=== PATIENT | male | born 1930 | race Caucasian/White ===

== ENCOUNTER 2016-03-30 10:13 | Emergency (ER) | payer OTHER ==
[~2016-03-30 10:13] MED LIST: ALBUTEROL HFA60 DOSE IN; ASPIRIN ADULT L81 MG PO; CEFTIN500 MG PO; COZAAR100 MG PO; LANTUS SOL100 UNITS/ SC; LIPITOR80 MG PO; MAG-OX 400400 MG PO; METFORMIN HCL850 MG PO; NEXIUM20 M1 PO; TOPROL XL25 MG PO; VICODIN EQUIVAL1 TAB PO; VITAMIN D-31000 UNIT PO; ZESTRIL2.5 MG PO
--- NOTE | 2016-03-30 12:41 | DIAGNOSTIC IMAGING REPORT ---
PROCEDURE: XR CHEST 2 VIEW INDICATION: COUGH TECHNIQUE: PA and lateral view. COMPARISON: None. FINDINGS: Lungs are clear without infiltrates. No change in the 3 mm right lower lobe linear density, possibly a foreign body. Cardiovascular structures are normal. Bony thorax is unremarkable. IMPRESSION: 1. No acute changes.
--- NOTE | 2016-03-30 13:03 | ED ORDER SUMMARY ---
..... Patient: HANY ARNOLD OrderSheet [facility] VisitID: [id number] [address] [place] [address] 85y, M Registration Date/Time: 03/30/2016 ORDER SHEET Weight: 83.9 kg (stated) Allergies: No Known Drug Allergy GENERAL ORDERS: Chest 2V Urgent (11:03/30/2016 Viry CROCKETT) (Ack 11:13 Juany) (11:24 Jose Francisco) MEDICATION ORDERS: Albuterol Neb Tx 2.5 mg (HHN) (11:03/30/2016 Viry CROCKETT) (11:55 Bryce R.N.) Prednisone PO 40 mg (NOW) (11:03/30/2016 Viry CROCKETT) (Ack 11:02 Bryce R.N.) (11:04 Bryce R.N.) IV FLUIDS: ORDER SHEET NOTES: [Electronically signed by Nikky Bullard R.N. (13:30 03/30/2016)] [Electronically signed by Moise Rubio MD (00:49 04/01/2016)] [Electronically locked/signed by Nikky Bullard R.N. (13:30 03/30/2016)]
--- NOTE | 2016-03-30 13:03 | ED NURSING NOTES ---
Clinical Report - Nurses [facility] [address] [place] [address] 03/30/2016 10:14 Patient: HANY ARNOLD TRIAGE Triage time 10:21. Acuity: LEVEL 4. Chief Complaint: COUGH. Alert. No acute distress. SEPSIS SCREEN: Sepsis Screen. Negative (no infection suspected/documented). JAYLIN COMA SCORE: Jaylin Coma Scale: 15- eyes open spontaneously (4); best verbal response- oriented x 4 (5); best motor response- obeys commands (6). --10:25 Nikky Bullard R.N. 10:21 03/30/16. BP: 157/74. HR: 76. RR: 18. O2 saturation: 98%. Temp: 97.8 F. Pain level now 04/26. --10:25 Nikky Bullard R.N. Weight: 83.9 kg stated. Height/Length: 72 inches Per Patient. BMI: 25.1. --10:23 Nikky Bullard R.N. Medications Aspirin Oral (Tablet Chewable 81 mg) 1 tablet, daily. Atorvastatin Calcium Oral (Tablet 80 mg) 1 tablet, daily. Lantus Subcutaneous 26 units, every PM. MetFORMIN HCl Oral (Tablet 850 mg) 1 tablet, 2x a day. Omeprazole Oral 40 mg, daily. Vitamin D (Cholecalciferol) Oral 2000IU, daily. --10:24 Nikky Bullard R.N. Blood Pressure Pill. --10:24 Nikky Bullard R.N. Allergies No Known Drug Allergy. --10:24 Nikky Bullard R.N. History Arrived by private vehicle. Historian: patient. Accompanied by spouse. Primary physician (Dr. Garcia). Onset. (3 weeks ago continues to get worse). Treatment IRONER: None. PAST MEDICAL HX: Immunizations: up-to-date. SOCIAL HX: Current every day light tobacco smoker (cigarette)- less than 1/2 a pack per day. Occasional alcohol use. No drug use. No infectious disease exposure. ABUSE ASSESSMENT: Abuse assessment: The patient was asked "Do you feel safe in your home?" and "Has anyone hurt you or threatened to hurt you?". No report of abuse. SELF HARM ASSESSMENT: A self harm assessment was performed. The patient answered "no" to the question "Do you have thoughts of harming or killing yourself?" and "Have you recently had thoughts about harming or killing others?". NUTRITIONAL RISK ASSESSMENT: The nutritional risk assessment revealed no deficiencies. FUNCTIONAL ASSESSMENT: Functional assessment: no impairments noted. LEARNING NEEDS ASSESSMENT: The learning needs assessment revealed no barriers. --10:25 Nikky Bullard R.N. PROBLEMS: Dehydration. Hypertension. Sinus Tachycardia. UTI - Urinary Tract Infection. Contusion. Fall. Back Pain. GERD. Elevated Cholesterol. Syncope. Diabetes Mellitus. --10:25 Nikky Bullard R.N. ADDITIONAL SURGERIES: Colon resection. Colonoscopy. Lung biopsy. Lung Surgery. Polyp removals. Vasectomy. --10:25 Nikky Bullard R.N. Interventions ID band on patient. Ambulatory. --10:25 Nikky Bullard R.N. PHYSICAL ASSESSMENT Ambulatory to room. GENERAL / NEURO / PSYCH: Alert. Appears in no acute distress. HEENT: Mucous membranes are pink. RESPIRATORY: Respirations not labored. CVS: Capillary refill less than 2 seconds. SKIN: Skin is warm and dry. --10:26 Nikky Bullard R.N. NURSING PROGRESS NOTES Patient gowned. Head of bed elevated. Two patient identifiers checked. Call light placed in reach. Side rails up x 2. Bed placed in lowest position. Brakes of bed on. Patient ready for evaluation- chart flagged. --10:26 Nikky Bullard R.N. 10:26 03/30/2016 Site #1 started via IV in the right antecubital space with an 20g angiocath, with aseptic technique and good blood return; one attempt. Blood drawn: rainbow set. Labeled in the presence of the patient and sent to the lab. Saline lock flushed with 10 mL saline (accessed by CHELE Lang). --10:26 Nikky Bullard R.N. 11:04 03/30/2016 Prednisone PO 40 mg given. Allergies verified and confirmed 5 rights. --11:04 Nikky Bullard R.N. Patient transported to radiology by stretcher with tech. --11:06 Nikky Bullard R.N. ( RT notified for breathing treatment.). --11:06 Nikky Bullard R.N. Point of care testing: performed by tech. Glucose: 210. Result shown to the ED physician and RN. --11:17 Osmani Barakat 11:47 03/30/16. BP: 149/74 (regular adult cuff) taken on the left arm, via an automated monitor, while sitting. ED physician and RN notified. HR: 87 (regular, normal rate and strong). ED physician notified. RR: 18 (regular, unlabored and normal). O2 saturation: 87% on room air. RN notified. --11:48 Osmani Barakat 11:55 03/30/2016 Albuterol Neb TX 2.5 mg given. Given by the respiratory therapist. Allergies verified and confirmed 5 rights. --11:55 Nikky Bullard R.N. DISPOSITION / DISCHARGE 13:28 03/30/2016 Site #1 removed upon discharge. Catheter intact. Manual pressure and bandaid applied. --13:28 Nikky Bullard R.N. 13:28 03/30/16. BP: 140/75. HR: 90. RR: 16. O2 saturation: 98%. Temp: 98.6 F. Pain level now 0/10. --13:28 Nikky Bullard R.N. Condition at departure: stable. No learning barriers present. Discharge instructions provided and reviewed with the patient. Reviewed medication(s) side effects, precautions, dosing and course information. Prescription(s) given to the patient. Reviewed referral to family practice for followup. Patient verbalized understanding. Written instructions provided in Greek. The patient was discharged home and accompanied by legal director. He left the Emergency Department ambulatory and via private vehicle. Scholarship Counselor driving. Medication list reviewed and validated. --13:30 Nikky Bullard R.N. Departure time: 13:30. --13:30 Nikky Bullard R.N. Locked/Released at 03/30/2016 13:30 by Nikky Bullard R.N.
--- NOTE | 2016-03-30 13:03 | ED ORDER SUMMARY ---
..... Patient: HANY ARNOLD OrderSheet [facility] VisitID: [id number] [address] [place] [address] 85y, M Registration Date/Time: 03/30/2016 ORDER SHEET Weight: 83.9 kg (stated) Allergies: No Known Drug Allergy GENERAL ORDERS: Chest 2V Urgent (11:03/30/2016 Viry CROCKETT) (Ack 11:13 Juany) (11:24 Jose Francisco) MEDICATION ORDERS: Albuterol Neb Tx 2.5 mg (HHN) (11:03/30/2016 Viry CROCKETT) (11:55 Bryce R.N.) Prednisone PO 40 mg (NOW) (11:03/30/2016 Viry CROCKETT) (Ack 11:02 Bryce R.N.) (11:04 Bryce R.N.) IV FLUIDS: ORDER SHEET NOTES: [Electronically signed by Nikky Bullard R.N. (13:30 03/30/2016)] [Electronically signed by Moise Rubio MD (00:49 04/01/2016)] [Electronically locked/signed by Nikky Bullard R.N. (13:30 03/30/2016)]
--- NOTE | 2016-03-30 13:03 | ED CLINICAL REPORT ---
Clinical Report - Physicians/Mid Levels [facility] [address] [place] [address] 03/30/2016 10:14 [id number] Time Seen: 11:02. HISTORY OF PRESENT ILLNESS Chief Complaint: COUGH. This started several weeks ago and is still present. It has been constant and waxing/waning. The illness is described as moderate. The patient has had a mild cough (to moderate). No sputum production, chest pain, fever, muscle aches or sore throat. No hoarseness, nasal congestion or discharge or ear pain. He has had mild difficulty breathing. Similar symptoms previously: None. REVIEW OF SYSTEMS No chills, fever, eye irritation, ear pain or sore throat. No abdominal pain, black stools, bloody stools, diarrhea or nausea. No vomiting, back pain, skin rash or difficulty with urination. The patient has had joint pain. Has had similar previous symptoms of joint pain. PAST HISTORY PCP: [facility] PROBLEMS: Dehydration. Hypertension. Sinus Tachycardia. UTI - Urinary Tract Infection. Contusion. Fall. Back Pain. GERD. Elevated Cholesterol. Syncope. Diabetes Mellitus. ADDITIONAL SURGERIES: Colon resection. Colonoscopy. Lung biopsy. Lung Surgery. Polyp removals. Vasectomy. SOCIAL HISTORY Current some days smoker (Quit for 30 years and now resumed). ADDITIONAL NOTES The nursing notes have been reviewed. PHYSICAL EXAM Vital Signs: 03/30/2016 13:28 BP: 140/75. HR: 90. RR: 16. O2 saturation: 98%. Temp: 98.6 F. 03/30/2016 11:47 BP: 149/74. HR: 87. RR: 18. O2 saturation: 87%. 03/30/2016 10:21 BP: 157/74. HR: 76. RR: 18. O2 saturation: 98%. Temp: 97.8 F. Appearance: Alert. No acute distress. (Intermittant moderate cough). Eyes: Eyes normal inspection. ENT: Pharynx normal. Neck: Normal inspection. CVS: Normal heart rate and rhythm. Heart sounds normal. Respiratory: No respiratory distress. Mildly decreased breath sounds diffusely over both lungs. No accessory muscle use, rhonchi or wheezes. Abdomen: Soft and nontender. Extremities: Extremities exhibit normal ROM. No lower extremity edema. LABS, X-RAYS, AND EKG Chest X-ray: (PROCEDURE: XR CHEST 2 VIEW INDICATION: COUGH TECHNIQUE: PA and lateral view. COMPARISON: None. FINDINGS: Lungs are clear without infiltrates. No change in the 3 mm right lower lobe linear density, possibly a foreign body. Cardiovascular structures are normal. Bony thorax is unremarkable. IMPRESSION: 1. No acute changes. Electronically Final signed by:Antione Bishop MD 03/30/2016 12:41:04 PM). The X-rays were interpreted by the radiologist and contemporaneously by me. PROGRESS AND PROCEDURES Course of Care: This clinical setting is most consistent with an initial viral illness with a COPD exacerbation.. This is not pneumonia or CHF. Disposition: Discharged. Condition: stable. CLINICAL IMPRESSION Acute exacerbation of COPD. INSTRUCTIONS (IMMEDIATE RECHECK IF WORSE). Prescription Medications: Albuterol HFA oral inhaler. Dispense one (1) unit. No refill. (2-4 PUFFS EVERY 4 HOURS PRN COUGH OR SOB) Prednisone 20 mg: take 2 orally every day for 5 days. Dispense ten (10). No refills. Follow-up: Follow up with your doctor in five days even if well. Understanding of the discharge instructions verbalized by patient and family. (Electronically signed by Moise Rubio MD 04/01/2016 0:49)
--- NOTE | 2016-03-30 13:03 | ED CLINICAL REPORT ---
Clinical Report - Physicians/Mid Levels [facility] [address] [place] [address] 03/30/2016 10:14 [id number] Time Seen: 11:02. HISTORY OF PRESENT ILLNESS Chief Complaint: COUGH. This started several weeks ago and is still present. It has been constant and waxing/waning. The illness is described as moderate. The patient has had a mild cough (to moderate). No sputum production, chest pain, fever, muscle aches or sore throat. No hoarseness, nasal congestion or discharge or ear pain. He has had mild difficulty breathing. Similar symptoms previously: None. REVIEW OF SYSTEMS No chills, fever, eye irritation, ear pain or sore throat. No abdominal pain, black stools, bloody stools, diarrhea or nausea. No vomiting, back pain, skin rash or difficulty with urination. The patient has had joint pain. Has had similar previous symptoms of joint pain. PAST HISTORY PCP: [facility] PROBLEMS: Dehydration. Hypertension. Sinus Tachycardia. UTI - Urinary Tract Infection. Contusion. Fall. Back Pain. GERD. Elevated Cholesterol. Syncope. Diabetes Mellitus. ADDITIONAL SURGERIES: Colon resection. Colonoscopy. Lung biopsy. Lung Surgery. Polyp removals. Vasectomy. SOCIAL HISTORY Current some days smoker (Quit for 30 years and now resumed). ADDITIONAL NOTES The nursing notes have been reviewed. PHYSICAL EXAM Vital Signs: 03/30/2016 13:28 BP: 140/75. HR: 90. RR: 16. O2 saturation: 98%. Temp: 98.6 F. 03/30/2016 11:47 BP: 149/74. HR: 87. RR: 18. O2 saturation: 87%. 03/30/2016 10:21 BP: 157/74. HR: 76. RR: 18. O2 saturation: 98%. Temp: 97.8 F. Appearance: Alert. No acute distress. (Intermittant moderate cough). Eyes: Eyes normal inspection. ENT: Pharynx normal. Neck: Normal inspection. CVS: Normal heart rate and rhythm. Heart sounds normal. Respiratory: No respiratory distress. Mildly decreased breath sounds diffusely over both lungs. No accessory muscle use, rhonchi or wheezes. Abdomen: Soft and nontender. Extremities: Extremities exhibit normal ROM. No lower extremity edema. LABS, X-RAYS, AND EKG Chest X-ray: (PROCEDURE: XR CHEST 2 VIEW INDICATION: COUGH TECHNIQUE: PA and lateral view. COMPARISON: None. FINDINGS: Lungs are clear without infiltrates. No change in the 3 mm right lower lobe linear density, possibly a foreign body. Cardiovascular structures are normal. Bony thorax is unremarkable. IMPRESSION: 1. No acute changes. Electronically Final signed by:Antione Bishop MD 03/30/2016 12:41:04 PM). The X-rays were interpreted by the radiologist and contemporaneously by me. PROGRESS AND PROCEDURES Course of Care: This clinical setting is most consistent with an initial viral illness with a COPD exacerbation.. This is not pneumonia or CHF. Disposition: Discharged. Condition: stable. CLINICAL IMPRESSION Acute exacerbation of COPD. INSTRUCTIONS (IMMEDIATE RECHECK IF WORSE). Prescription Medications: Albuterol HFA oral inhaler. Dispense one (1) unit. No refill. (2-4 PUFFS EVERY 4 HOURS PRN COUGH OR SOB) Prednisone 20 mg: take 2 orally every day for 5 days. Dispense ten (10). No refills. Follow-up: Follow up with your doctor in five days even if well. Understanding of the discharge instructions verbalized by patient and family. (Electronically signed by Moise Rubio MD 04/01/2016 0:49)
--- NOTE | 2016-03-30 13:03 | ED NURSING NOTES ---
Clinical Report - Nurses [facility] [address] [place] [address] 03/30/2016 10:14 Patient: HANY ARNOLD TRIAGE Triage time 10:21. Acuity: LEVEL 4. Chief Complaint: COUGH. Alert. No acute distress. SEPSIS SCREEN: Sepsis Screen. Negative (no infection suspected/documented). JAYLIN COMA SCORE: Jaylin Coma Scale: 15- eyes open spontaneously (4); best verbal response- oriented x 4 (5); best motor response- obeys commands (6). --10:25 Nikky Bullard R.N. 10:21 03/30/16. BP: 157/74. HR: 76. RR: 18. O2 saturation: 98%. Temp: 97.8 F. Pain level now 04/26. --10:25 Nikky Bullard R.N. Weight: 83.9 kg stated. Height/Length: 72 inches Per Patient. BMI: 25.1. --10:23 Nikky Bullard R.N. Medications Aspirin Oral (Tablet Chewable 81 mg) 1 tablet, daily. Atorvastatin Calcium Oral (Tablet 80 mg) 1 tablet, daily. Lantus Subcutaneous 26 units, every PM. MetFORMIN HCl Oral (Tablet 850 mg) 1 tablet, 2x a day. Omeprazole Oral 40 mg, daily. Vitamin D (Cholecalciferol) Oral 2000IU, daily. --10:24 Nikky Bullard R.N. Blood Pressure Pill. --10:24 Nikky Bullard R.N. Allergies No Known Drug Allergy. --10:24 Nikky Bullard R.N. History Arrived by private vehicle. Historian: patient. Accompanied by spouse. Primary physician (Dr. Garcia). Onset. (3 weeks ago continues to get worse). Treatment REGULATORY LEADER: None. PAST MEDICAL HX: Immunizations: up-to-date. SOCIAL HX: Current every day light tobacco smoker (cigarette)- less than 1/2 a pack per day. Occasional alcohol use. No drug use. No infectious disease exposure. ABUSE ASSESSMENT: Abuse assessment: The patient was asked "Do you feel safe in your home?" and "Has anyone hurt you or threatened to hurt you?". No report of abuse. SELF HARM ASSESSMENT: A self harm assessment was performed. The patient answered "no" to the question "Do you have thoughts of harming or killing yourself?" and "Have you recently had thoughts about harming or killing others?". NUTRITIONAL RISK ASSESSMENT: The nutritional risk assessment revealed no deficiencies. FUNCTIONAL ASSESSMENT: Functional assessment: no impairments noted. LEARNING NEEDS ASSESSMENT: The learning needs assessment revealed no barriers. --10:25 Nikky Bullard R.N. PROBLEMS: Dehydration. Hypertension. Sinus Tachycardia. UTI - Urinary Tract Infection. Contusion. Fall. Back Pain. GERD. Elevated Cholesterol. Syncope. Diabetes Mellitus. --10:25 Nikky Bullard R.N. ADDITIONAL SURGERIES: Colon resection. Colonoscopy. Lung biopsy. Lung Surgery. Polyp removals. Vasectomy. --10:25 Nikky Bullard R.N. Interventions ID band on patient. Ambulatory. --10:25 Nikky Bullard R.N. PHYSICAL ASSESSMENT Ambulatory to room. GENERAL / NEURO / PSYCH: Alert. Appears in no acute distress. HEENT: Mucous membranes are pink. RESPIRATORY: Respirations not labored. CVS: Capillary refill less than 2 seconds. SKIN: Skin is warm and dry. --10:26 Nikky Bullard R.N. NURSING PROGRESS NOTES Patient gowned. Head of bed elevated. Two patient identifiers checked. Call light placed in reach. Side rails up x 2. Bed placed in lowest position. Brakes of bed on. Patient ready for evaluation- chart flagged. --10:26 Nikky Bullard R.N. 10:26 03/30/2016 Site #1 started via IV in the right antecubital space with an 20g angiocath, with aseptic technique and good blood return; one attempt. Blood drawn: rainbow set. Labeled in the presence of the patient and sent to the lab. Saline lock flushed with 10 mL saline (accessed by CHELE Lang). --10:26 Nikky Bullard R.N. 11:04 03/30/2016 Prednisone PO 40 mg given. Allergies verified and confirmed 5 rights. --11:04 Nikky Bullard R.N. Patient transported to radiology by stretcher with tech. --11:06 Nikky Bullard R.N. ( RT notified for breathing treatment.). --11:06 Nikky Bullard R.N. Point of care testing: performed by tech. Glucose: 210. Result shown to the ED physician and RN. --11:17 Osmani Barakat 11:47 03/30/16. BP: 149/74 (regular adult cuff) taken on the left arm, via an automated monitor, while sitting. ED physician and RN notified. HR: 87 (regular, normal rate and strong). ED physician notified. RR: 18 (regular, unlabored and normal). O2 saturation: 87% on room air. RN notified. --11:48 Osmani Barakat 11:55 03/30/2016 Albuterol Neb TX 2.5 mg given. Given by the respiratory therapist. Allergies verified and confirmed 5 rights. --11:55 Nikky Bullard R.N. DISPOSITION / DISCHARGE 13:28 03/30/2016 Site #1 removed upon discharge. Catheter intact. Manual pressure and bandaid applied. --13:28 Nikky Bullard R.N. 13:28 03/30/16. BP: 140/75. HR: 90. RR: 16. O2 saturation: 98%. Temp: 98.6 F. Pain level now 0/10. --13:28 Nikky Bullard R.N. Condition at departure: stable. No learning barriers present. Discharge instructions provided and reviewed with the patient. Reviewed medication(s) side effects, precautions, dosing and course information. Prescription(s) given to the patient. Reviewed referral to family practice for followup. Patient verbalized understanding. Written instructions provided in Maori. The patient was discharged home and accompanied by planning lead. He left the Emergency Department ambulatory and via private vehicle. Ball Assembler driving. Medication list reviewed and validated. --13:30 Nikky Bullard R.N. Departure time: 13:30. --13:30 Nikky Bullard R.N. Locked/Released at 03/30/2016 13:30 by Nikky Bullard R.N.
--- NOTE | 2016-04-01 00:49 | ED DISCHARGE INSTRUCTIONS ---
Patient: HANY ARNOLD General Instructions [facility] VisitID: [id number] [place] [address] 85y, M Registration Date/Time: 03/30/2016 Acute exacerbation of COPD. INSTRUCTIONS (IMMEDIATE RECHECK IF WORSE). Prescription Medications: Albuterol HFA oral inhaler. Dispense one (1) unit. No refill. (2-4 PUFFS EVERY 4 HOURS PRN COUGH OR SOB) Prednisone 20 mg: take 2 orally every day for 5 days. Dispense ten (10). No refills. Follow-up: Follow up with your doctor in five days even if well. Understanding of the discharge instructions verbalized by patient and family. ADDITIONAL INFORMATION COPD Flare Both emphysema and chronic bronchitis are forms of chronic obstructive pulmonary disease (COPD). It is most often caused by many years of smoking tobacco. Many things can make your lung disease suddenly get worse. These causes include the common cold, pneumonia, acute bronchitis, missing doses of your regular breathing medicines, or being around smoke, dust, or other air pollutants. A COPD flare may last 7 to 14 days. Your doctor may prescribe medicineto relax your airways and prevent wheezing. Your doctor may also prescribe antibiotics if he or she thinks you havea bacterial infection. Prednisone can helpease inflammation in a severe attack. Home care Here are things you can do at home: Drink lots of water or other fluids (at least 10 glasses a day) during an attack. This will loosen lung secretions and make it easier to breathe. If you have heart or kidney disease, check with your doctor before you drink extra amounts of fluids. Take prescribed medicine exactly at the times advised. If you have a hand-held inhaler or aerosol breathing medicine, don't use it more than once every 4 hours, unless your doctor tells you to. If you were givenan antibiotic or prednisone, take all of the medicine even if you are feeling better after a few days. Don't smoke. Avoid being aroundthe smoke of others. If you were given an inhaler, use it exactly as directed. If you need to use it more often than prescribed, your condition may be getting worse. Call your doctor. Follow-up care Follow up with your health care provider.If you are 65 or older or have chronic asthma or COPD, you should get a single dose of the pneumococcal vaccine and aflu shot each year. You may need a second dose of the pneumococcal vaccine if you had the first dose at a younger age. Your health care provider will let you know if you need a second dose. For all other people, the usual dose for the pneumococcal vaccine is 1 or 2 shots. Yourprovider can discuss this with you. When to seek medical care Get prompt medical attention ifany of these occur: Increased wheezing or shortness of breath Need to use your inhalers more often than usual without relief Fever of 100.4F(38C) or higher, or as directed by your health care provider Coughing up lots of dark-colored or bloody sputum (mucus) Chest pain with each breath You do not start to improve within 24 hours Bronchitis, Viral (Adult: No Abx) You have a viral bronchitis. This illness is contagious during the first few days and is spread through the air by coughing and sneezing, or by direct contact (touching the sick person and then touching your own eyes, nose, or mouth). Most viral illnesses resolve within 10-14 days with rest and simple home remedies, although they may sometimes last for several weeks. Antibiotics will not kill a virus and are generally not prescribed for this condition. Home Care: If symptoms are severe, rest at home for the first 2-3 days. When resuming activity, don't let yourself become overly tired. Do not smoke and avoid the smoke of others. You may use acetaminophen (Tylenol) or ibuprofen (Motrin, Advil) to control fever or pain, unless another pain medicine was prescribed. [NOTE: If you have chronic liver or kidney disease or ever had a stomach ulcer or GI bleeding, talk with your doctor before using these medicines.] (Aspirin should never be used in anyone under 18 years of age who is ill with a fever. It may cause severe liver damage.) Your appetite may be poor so a light diet is fine. Avoid dehydration by drinking 6-8 glasses of fluids per day (water, sport drinks such as Gatorade, juices, tea, soup, etc.). Extra fluids will help loosen secretions in the nose and lung. Kuxi-rar-utuytgm cold medicines will not shorten the length of the illness, but may be helpful for cough (Robitussin DM), sore throat (Chloraseptic lozenges or spray), nasal and sinus congestion (Actifed or Sudafed). [NOTE: Do not use decongestants if you have high blood pressure.] Follow Up with your doctor or as directed by our staff if you are not improving over the next week. NOTE: If you are age 65 or older, or if you have chronic asthma or COPD, we recommend a PNEUMOCOCCAL VACCINATION every five years and a yearly INFLUENZAVACCINATION (FLU-SHOT) every . Ask your doctor about this. If you had an X-ray, a radiologist will review it. You will be notified of any new findings that may affect your care.] Get Prompt Medical Attention if any of the following occur: Fever over 100.4F (38.0C) for more than three days Trouble breathing, wheezing or pain with breathing Coughing up blood or increased amounts of colored sputum Weakness, drowsiness, headache, facial pain, ear pain or a stiff neck Albuterol Sulfate Pressurized inhalation, suspension What is this medicine? ALBUTEROL (al BYOO ter ole) is a bronchodilator. It helps open up the airways in your lungs to make it easier to breathe. This medicine is used to treat and to prevent bronchospasm. How should I use this medicine? This medicine is for inhalation through the mouth. Follow the directions on your prescription label. Take your medicine at regular intervals. Do not use more often than directed. Make sure that you are using your inhaler correctly. Ask you doctor or health care provider if you have any questions. Talk to your anode rebuilder regarding the use of this medicine in children. Special care may be needed. What side effects may I notice from receiving this medicine? Side effects that you should report to your doctor or health director of health care marketing as soon as possible: allergic reactions like skin rash, itching or hives, swelling of the face, lips, or tongue breathing problems chest pain feeling faint or lightheaded, falls high blood pressure irregular heartbeat fever muscle cramps or weakness pain, tingling, numbness in the hands or feet vomiting Side effects that usually do not require medical attention (report to your doctor or health director of health care marketing if they continue or are bothersome): cough difficulty sleeping headache nervousness or trembling stomach upset stuffy or runny nose throat irritation unusual taste What may interact with this medicine? anti-infectives like chloroquine and pentamidine caffeine cisapride diuretics medicines for colds medicines for depression or for emotional or psychotic conditions medicines for weight loss including some herbal products methadone some antibiotics like clarithromycin, erythromycin, levofloxacin, and linezolid some heart medicines steroid hormones like dexamethasone, cortisone, hydrocortisone theophylline thyroid hormones What if I miss a dose? If you miss a dose, use it as soon as you can. If it is almost time for your next dose, use only that dose. Do not use double or extra doses. Where should I keep my medicine? Keep out of the reach of children. Store at room temperature between 15 and 30 degrees C (59 and 86 degrees F). The contents are under pressure and may burst when exposed to heat or flame. Do not freeze. This medicine does not work as well if it is too cold. Throw away any unused medicine after the expiration date. Inhalers need to be thrown away after the labeled number of puffs have been used or by the expiration date; whichever comes first. Ventolin HFA should be thrown away 12 months after removing from foil pouch. Check the instructions that come with your medicine. What should I tell my health care provider before I take this medicine? They need to know if you have any of the following conditions: diabetes heart disease or irregular heartbeat high blood pressure pheochromocytoma seizures thyroid disease an unusual or allergic reaction to albuterol, levalbuterol, sulfites, other medicines, foods, dyes, or preservatives or trying to get breast-feeding What should I watch for while using this medicine? Tell your doctor or health director of health care marketing if your symptoms do not improve. Do not use extra albuterol. If your asthma or bronchitis gets worse while you are using this medicine, call your doctor right away. If your mouth gets dry try chewing sugarless gum or sucking hard candy. Drink water as directed. You have been given the following additional information: COPD Flare Bronchitis, No Antibiotic (Adult) Albuterol Sulfate Pressurized inhalation, suspension (Electronically signed by Moise Rubio MD 04/01/2016 0:49)
--- NOTE | 2016-04-01 00:49 | ED MED RECONCILIATION SUMMARY ---
Patient: HANY ARNOLD Medication Reconciliation Report [facility] VisitID: [id number] [address] [place] [address] 85y, M Registration Date/Time: 03/30/2016 Weight: 83.9 kg Height/Length: 72 in. BMI: 25.1 ALLERGIES: No Known Drug Allergy The patient's Home Medications are listed below: THE FOLLOWING MEDICATIONS NEED TO BE RECONCILED: Aspirin Oral (81 mg) 1 tablet, daily Atorvastatin Calcium Oral (80 mg) 1 tablet, daily Blood Pressure Pill Lantus Subcutaneous 26 units, every PM MetFORMIN HCl Oral (850 mg) 1 tablet, 2x a day Omeprazole Oral 40 mg, daily Vitamin D (Cholecalciferol) Oral 2000IU, daily The source(s) of the original Home Medication information: Not obtained. The following Medications were given to the patient in the Emergency Department: Prednisone [PO] PO 40 mg, administered: 03/30/2016 11:04:00 AM Albuterol [Neb Tx] Neb TX 2.5 mg, administered: 03/30/2016 11:55:00 AM The following Medications were prescribed to the patient: Albuterol HFA oral inhaler. Dispense one (1) unit. No refill.(2-4 PUFFS EVERY 4 HOURS PRN COUGH OR SOB) -- Moise Rubio MD Prednisone 20 mg: take 2 orally every day for 5 days. Dispense ten (10). No refills. -- Moise Rubio MD
--- NOTE | 2016-04-01 00:49 | ED MAR SUMMARY ---
..... Medication Administration Record [facility] [address] [place] [address] Patient: HANY ARNOLD Visit ID: [id number] 85y, M Weight: 83.9 kg Height/Length: 72 in BMI: 25.1 ALLERGIES: No Known Drug Allergy Given 11:04 03/30/2016 Nikky Bullard R.N. Medication Administered: PREDNISONE [PO], Dose: 40 mg PO. Medication Ordered: Prednisone PO 40 mg (NOW). Given 11:55 03/30/2016 Nikky Bullard R.N. Medication Administered: ALBUTEROL [NEB TX], Dose: 2.5 mg Neb TX. Medication Ordered: Albuterol Neb Tx 2.5 mg ([facility]).
--- NOTE | 2016-04-01 00:49 | ED MED RECONCILIATION SUMMARY ---
Patient: HANY ARNOLD Medication Reconciliation Report [facility] VisitID: [id number] [address] [place] [address] 85y, M Registration Date/Time: 03/30/2016 Weight: 83.9 kg Height/Length: 72 in. BMI: 25.1 ALLERGIES: No Known Drug Allergy The patient's Home Medications are listed below: THE FOLLOWING MEDICATIONS NEED TO BE RECONCILED: Aspirin Oral (81 mg) 1 tablet, daily Atorvastatin Calcium Oral (80 mg) 1 tablet, daily Blood Pressure Pill Lantus Subcutaneous 26 units, every PM MetFORMIN HCl Oral (850 mg) 1 tablet, 2x a day Omeprazole Oral 40 mg, daily Vitamin D (Cholecalciferol) Oral 2000IU, daily The source(s) of the original Home Medication information: Not obtained. The following Medications were given to the patient in the Emergency Department: Prednisone [PO] PO 40 mg, administered: 03/30/2016 11:04:00 AM Albuterol [Neb Tx] Neb TX 2.5 mg, administered: 03/30/2016 11:55:00 AM The following Medications were prescribed to the patient: Albuterol HFA oral inhaler. Dispense one (1) unit. No refill.(2-4 PUFFS EVERY 4 HOURS PRN COUGH OR SOB) -- Moise Rubio MD Prednisone 20 mg: take 2 orally every day for 5 days. Dispense ten (10). No refills. -- Moise Rubio MD
--- NOTE | 2016-04-01 00:49 | ED MAR SUMMARY ---
..... Medication Administration Record [facility] [address] [place] [address] Patient: HANY ARNOLD Visit ID: [id number] 85y, M Weight: 83.9 kg Height/Length: 72 in BMI: 25.1 ALLERGIES: No Known Drug Allergy Given 11:04 03/30/2016 Nikky Bullard R.N. Medication Administered: PREDNISONE [PO], Dose: 40 mg PO. Medication Ordered: Prednisone PO 40 mg (NOW). Given 11:55 03/30/2016 Nikky Bullard R.N. Medication Administered: ALBUTEROL [NEB TX], Dose: 2.5 mg Neb TX. Medication Ordered: Albuterol Neb Tx 2.5 mg ([facility]).
== END 2016-03-30 13:30 | disposition home or self-care (01) ==
LOC: ED SRH 10:13
DX: J44.1 Chronic obstructive pulmonary disease with (acute) exacerbation (principal); I10 Essential (primary) hypertension; E11.9 Type 2 diabetes mellitus without complications; K21.9 Gastro-esophageal reflux disease without esophagitis; F17.210 Nicotine dependence, cigarettes, uncomplicated; Z79.899 Other long term (current) drug therapy; Z79.84 Long term (current) use of oral hypoglycemic drugs